=== PATIENT | female | born 1995 | race Caucasian/White ===

== ENCOUNTER → 2017-07-07 | Outpatient (CLI) | payer OTHER | LOC: COL.RAD 13:07 | DX: R59.0 Localized enlarged lymph nodes (principal) ==

== ENCOUNTER → 2017-09-09 | Outpatient (CLI) | payer OTHER | LOC: COL.RAD 12:13 | DX: M79.661 Pain in right lower leg (principal); M25.571 Pain in right ankle and joints of right foot ==